=== PATIENT | female | born 1945 | race Caucasian/White ===

== ENCOUNTER → 2017-05-22 12:15 | Outpatient (CLI) | payer MEDICARE ==
[2014-07-29 12:50] VITALS: BMI 30.9
[~2017-05-22 12:15] MED LIST: CARAFATE1 G/10 ML PO; CELEXA20 MG PO; CELEXA40 MG PO; HYDROCODONE-APA1 TAB PO; LEVOTHROID50 MCG PO; NORCO 10/325 TA1 TA1 PO; PRILOSEC20 MG; PROTONIX40 MG PO; VITAMIN B-122500 MCG SL; levothyroxine
== END | disposition home or self-care (01) ==
LOC: D.MAMMO 11:15
DX: Z12.31 Encounter for screening mammogram for malignant neoplasm of breast (principal)

== ENCOUNTER 2019-02-26 09:00 | Outpatient (CLI) | payer MEDICARE ==
[2014-07-29 12:50] VITALS: BMI 30.9
== END 2019-02-26 10:00 | disposition home or self-care (01) ==
LOC: D.MAMMO 09:00
PROVIDERS: ATTEND Family Medicine
DX: Z12.31 Encounter for screening mammogram for malignant neoplasm of breast (principal)

== ENCOUNTER 2019-03-17 08:00 | Outpatient (CLI) | payer MEDICARE ==
[2014-07-29 12:50] VITALS: BMI 30.9
== END 2019-03-17 23:59 | disposition home or self-care (01) ==
LOC: D.MAMMO 08:00
PROVIDERS: ATTEND Family Medicine
DX: R92.8 Other abnormal and inconclusive findings on diagnostic imaging of breast (principal)